=== PATIENT | female | born 1980 | race Hispanic/Latino ===

== ENCOUNTER 2018-08-14 14:06 | Emergency (ER) | payer BC, OTHER ==
[~2018-08-14] VITALS: Ht 162.6 cm; Wt 86.2 kg
[~2018-08-14 14:06] MED LIST: OMEPRAZOLE20 MG PO; PYLERA CAPSULE1 EACH PO
[2018-08-14] MEDS ORDERED: IOPAMIDOL 370 MG/ML 50ML INFUS..BTL INJ ONE (15:30)
--- NOTE | 2018-08-14 15:46 | Diagnostic Imaging Report ---
EXAMINATION: CT of the abdomen and pelvis with contrast. TECHNIQUE: Helical CT images of the abdomen and pelvis were performed from the lung bases to the lesser trochanters after the intravenous administration of 100 cc of Isovue 300 and the oral administration of none. Coronal and sagittal reformatted images were obtained. COMPARISON: None. CLINICAL HISTORY:Right lower quadrant pain DISCUSSION: ABDOMEN/PELVIS: LOWER THORAX:Unremarkable. HEPATOBILIARY: No focal hepatic lesions. No intra-or extrahepatic biliary ductal dilation. The gallbladder is normal. SPLEEN: No splenomegaly. PANCREAS: No focal masses or ductal dilatation. ADRENALS: No adrenal nodules. KIDNEYS/URETERS: No hydronephrosis, stones, or solid mass lesions. PELVIC ORGANS/BLADDER: Bladder is normal. Partial hysterectomy. PERITONEUM/RETROPERITONEUM: Small amount of free fluid in the pelvis. LYMPH NODES: No intra-abdominal, retroperitoneal, pelvic or inguinal lymphadenopathy. VESSELS: The celiac trunk,superior and inferior mesenteric and bilateral renal arteries are patent The portal, superior mesenteric and splenic veins are patent. GI TRACT: Prior gastric surgery. No distention or wall thickening. Appendix normal. BONES AND SOFT TISSUE: No bony destructive lesions. No soft tissue abnormalities. IMPRESSION: No acute CT finding. Signed by: Dr. Jose Luis Castanon M.D. on 08/14/2018 3:43 PM
[2018-08-14] MEDS ORDERED: KETOROLAC TROMETHAMINE 30 MG/ML VIAL IV STA (16:09)
== END 2018-08-14 16:48 | disposition home or self-care (01) ==
LOC: FSED 14:06
DX: R10.31 Right lower quadrant pain (principal); R11.0 Nausea
CPT/HCPCS: 74177; 80053; 81003; 85025; 99284; J1885; Q9967